=== PATIENT | female | born 1995 | race American Indian/Alaskan Native ===

== ENCOUNTER 2018-05-12 21:08 | Emergency (ER) | payer OTHER ==
[2018-05-12] MEDS ORDERED: Sodium Chloride 0.9% 1,000 ML IV ONE (21:51)
--- NOTE | 2018-05-12 22:02 | ED PDOC ---
HPI: Abdomen Time Seen by Provider: 05/12/18 21:39 Chief Complaint (Nursing): Abdominal Pain Chief Complaint (Provider): Abdominal Pain History Per: Patient History/Exam Limitations: no limitations Onset/Duration Of Symptoms: Days (x2) Current Symptoms Are (Timing): Still Present Pain Scale Rating Of: 8 Location Of Pain/Discomfort: LLQ Quality Of Discomfort: Cramping Additional Complaint(s): 22 year old female presents to the ED for evaluation of LLQ pain described as 8/10 cramping for the past two days. She denies taking any medications prior to arrival, and suspects that she might be , but did not take a test at home. Denies fever, nausea, vomiting, diarrhea, vaginal bleeding / discharge, urinary symptoms, chest pain, cough, shortness of breath, and other complaints. LNMP: 03/23/2018 PMD and OBGYN: Leti Hill Past Medical History Reviewed: Historical Data, Nursing Documentation, Vital Signs Vital Signs: Last Vital Signs Temp 98.3 F 05/12/18 21:12 Pulse 95 H 05/12/18 21:12 Resp 16 05/12/18 21:12 BP 113/78 05/12/18 21:12 Pulse Ox 99 05/12/18 21:12 - Medical History PMH: No Chronic Diseases - Surgical History Surgical History: (x1) - Family History Family History: States: Unknown Family Hx - Home Medications Home Medications: Ambulatory Orders Medication Instructions Recorded Nitrofurantoin Macrocrystals 1 cap PO BID #14 cap 12/23/14 [Macrobid] Acetaminophen [Acetaminophen 8 650 mg PO Q8 PRN #21 tablet.er 05/13/18 Hour] 21/Iron Fu/Folic Acid 1 each PO DAILY #60 tablet 05/13/18 [ Complete Caplet] - Allergies Allergies/Adverse Reactions: Allergies Allergy/AdvReac Type Severity Reaction Status Date / Time No Known Allergies Allergy Verified 12/23/14 11:25 Review of Systems ROS Statement: Except As Marked, All Systems Reviewed And Found Negative Constitutional: Negative for: Fever Cardiovascular: Negative for: Chest Pain Respiratory: Negative for: Cough, Shortness of Breath Gastrointestinal: Positive for: Abdominal Pain (LLQ, cramping, 8/10). Negative for: Nausea, Vomiting, Diarrhea Genitourinary Female: Negative for: Dysuria, Frequency, Incontinence, Vaginal Discharge, Vaginal Bleeding Physical Exam - Reviewed Nursing Documentation Reviewed: Yes Vital Signs Reviewed: Yes - Physical Exam Comments: GENERAL APPEARANCE: Patient is awake, alert, oriented x 3, in no acute distress, resting comfortably. SKIN: Warm, dry; (-) cyanosis. EYES: (-) conjunctival pallor, (-) scleral icterus. ENMT: Mucous membranes moist. NECK: Supple, FROM CHEST AND RESPIRATORY: (-) rales, (-) rhonchi, (-) wheezes; breath sounds equal bilaterally. Respirations even and nonlabored. HEART AND CARDIOVASCULAR: (-) irregularity ABDOMEN AND GI: Soft (-) distention. Bowel sounds active x4; (+) LLQ and suprapubic tenderness (-) guarding, (-) rebound, (-) palpable masses, (-) CVA tenderness. EXTREMITIES: (-) deformity, (-) edema, (+) distal pulses. NEURO AND PSYCH: Mental status as above; (-) focal findings. Gait: steady. Speech: clear. (-) facial asymmetry (-) aphasia - Laboratory Results Result Diagrams: 05/12/18 22:55 05/12/18 22:55 Urine POC: Positive Urine dip results: Negative for: Leukocyte Esterase, Blood, Nitrate, Ketones, Glucose, Bilirubin, Protein - ECG O2 Sat by Pulse Oximetry: 99 (RA) Pulse Ox Interpretation: Normal Medical Decision Making Medical Decision Making: Initial Impression: abdominal pain in first trimester, positive test Time: 2149 Initial Plan: --Beta-HCG --CMP --U-preg positive upon arrival to ED --U-dip --CBC with differential --Normal saline IV --Tylenol 650mg PO Patient reports this is her second , as she has one living child at home who was born full term via with no complications. 2320 Udip reviewed. CBC and CMP grossly unremarkable. 0005 Beta quant: 61593.00 OB T/V U/S ordered to confirm IUP 0025 Patient in U/S. 0315 US Findings: Uterus measures 9.2x2.8x7.7 cm. Endometrium is normal in thickness measuring 8.2 mm. Early intrauterine gestational sac is noted. It corresponds to an estimated gestation age measuring 5 weeks and 5 days. Normal cervix measuring 2.9 cm in length. Nonvisualization of the right ovary secondary to gaseous bowel distention. Unremarkable left ovary measuring 2.9x1.9x2 cm. Impression: Early intrauterine gestational sac. Patient requesting information on elective . Patient advised to follow up with OBGYN. On re-evaluation, patient reports improvement of symptoms. On exam, patient remains AAOx3, in no acute distress. Lungs clear to auscultation, cardiac RRR, abdomen soft, non-tender, repeat neuro exam shows no focal findings. Vitals stable. Lab/Diagnostic results d/w the patient in great detail. Diagnosis of positive test, abdominal pain in first trimester d/w the patient. Based on history, exam and diagnostic results, plan will be for outpatient follow up with OBGYN. Patient instructed to follow-up with pmd / referral provided / the clinic in 1- 2 days without fail. Advised to take medication as prescribed. Return to the emergency room at any time for any new or worsening symptoms. Patient states she fully agrees with and understands discharge instructions. States that she agrees with the plan and disposition. Verbalized and repeated discharge instructions and plan. I have given the patient opportunity to ask any additional questions. Scribe Attestation: Documented by Shawna Curry, acting as a scribe for Karolina Bradley PA-C. Provider Scribe Attestation: All medical record entries made by the Scribe were at my direction and personally dictated by me. I have reviewed the chart and agree that the record accurately reflects my personal performance of the history, physical exam, medical decision making, and the department course for this patient. I have also personally directed, reviewed, and agree with the discharge instructions and disposition. Disposition - Clinical Impression Clinical Impression: Abdominal pain during , Positive test - Patient ED Disposition Is Patient to be Admitted: No Counseled Patient/Family Regarding: Studies Performed, Diagnosis, Need For Followup, Rx Given - Disposition Referrals: Leti Hill MD [Family Provider] - Disposition: Routine/Home Disposition Time: 03:10 Condition: STABLE Additional Instructions: The emergency medical care you received today was directed at your acute symptoms. If you were prescribed any medication, please fill it and take as d irected. It may take several days for your symptoms to resolve. Return to the Emergency Department if your symptoms worsen, do not improve, or if you have any other problems. Please contact your doctor in 2 days for re-evaluation and follow up / or call one of the physicians/clinics you have been referred to that are listed on the Patient Visit Information form that is included in your discharge packet. Bring any paperwork you were given at discharge with you along with any medications you are taking to your follow up visit. Our treatment cannot replace ongoing medical care by a primary care provider (PCP) outside of the emergency department. Prescriptions: Acetaminophen [Acetaminophen 8 Hour] 650 mg PO Q8 PRN #21 tablet.er PRN Reason: Pain, Moderate (4-7) 21/Iron Fu/Folic Acid [ Complete Caplet] 1 each PO DAILY #60 tablet Instructions: Tests, Symptoms, Care, - The First Month, - The Second Month, - The Third Month, - The Fourth Month, Stomach Pain in Early Forms: [facility] (Georgian) Print Language: FRISIAN - POA Present On Arrival: None Results - Lab Results Lab Results: 05/12/18 05/12/18 22:55 22:55 WBC 9.1 RBC 4.17 Hgb 11.7 L Hct 35.4 MCV 84.8 MCH 28.0 MCHC 33.0 RDW 15.6 H Plt Count 356 MPV 8.6 Neut % (Auto) 73.8 Lymph % (Auto) 15.5 L Pitt % (Auto) 8.2 Eos % (Auto) 1.9 Baso % (Auto) 0.6 Neut # (Auto) 6.7 Lymph # (Auto) 1.4 Pitt # (Auto) 0.7 Eos # (Auto) 0.2 Baso # (Auto) 0.1 Sodium 138 Potassium 4.3 Chloride 107 Carbon Dioxide 23 Anion Gap 12 BUN 8 Creatinine 0.5 L Est GFR ( Amer) > 60 Est GFR (Non-Af Amer) > 60 Random Glucose 72 Calcium 9.7 Total Bilirubin 0.3 AST 29 ALT 18 Alkaline Phosphatase 67 Total Protein 7.9 Albumin 4.3 Globulin 3.6 Albumin/Globulin Ratio 1.2 Beta HCG, Quant 13325.00
[2018-05-12 23:02] LABS: BASO # 0.1 K/uL (0.0-0.2); BASO % 0.6 % (0.0-2.0); EOS # 0.2 K/uL (0.0-0.7); EOS % 1.9 % (0.0-4.0); HEMOGLOBIN 11.7 g/dL (12.0-16.0); LYMPH # 1.4 K/uL (1.0-4.3); LYMPH % 15.5 % (20.0-40.0); MEAN CELL VOLUME 84.8 fl (81.0-99.0); MEAN PLATELET VOLUME 8.6 fl (7.2-11.7); MONO # 0.7 K/uL (0.0-0.8); MONO % 8.2 % (0.0-10.0); NEUT # 6.7 K/uL (1.8-7.0); NEUT % 73.8 % (50.0-75.0); RBC 4.17 Mil/uL (3.80-5.20); RED CELL DISTRIBUTION WIDTH 15.6 % (11.5-14.5); WHITE BLOOD COUNT 9.1 K/uL (4.8-10.8)
[2018-05-12 23:09] LABS: ALB/GLOB RATIO 1.2 (1.0-2.1); ALBUMIN 4.3 g/dL (3.5-5.0); ALT/SGPT 18 U/L (9-52); AST/SGOT 29 U/L (14-36); BLOOD UREA NITROGEN 8 mg/dl (7-17); CALCIUM 9.7 mg/dL (8.4-10.2); GFR NON-AFRICAN AMERICAN > 60
[2018-05-13 03:52] VITALS: BP 108/72; PULSE 77; RESP 18; TEMP 98.5
[2018-05-13 05:45] VITALS: O2SAT 99
--- NOTE | 2018-05-13 12:30 | US ---
Date of service: 05/13/2018 PROCEDURE: Pelvic ultrasound HISTORY: confirm IUP, positive preg test, beta >20k COMPARISON: None TECHNIQUE: Standard protocol for this study/examination. FINDINGS: LMP: 04/01/2018 Prior examinations from the current : None TECHNIQUE: Real-time 2D imaging, duplex and color Doppler. FINDINGS: No visible pole Gestational age 5 weeks 5 days based on gestational sac measurement 1.49 cm Gestational age derived from LMP: 6 weeks THEODORE based on LMP: 01/06/2019 THE[place]ORE based on biometry: 01/08/2019 Gestational concordance noted Yolk sac not identified Cervix: No Cervical abnormalities: Negative examination for cervical dilatation or effacement. Closed cervix measuring 3.94 cm Subchorionic hemorrhage: None UTERUS: 4.8 x 7.7 x 9.2 cm. ADNEXA: Right: Not visible. Left: 1.9 x 2 x 2.9 cm. Normal Doppler arterial waveform documented Fluid in the cul-de-sac: None IMPRESSION: Presumed early intrauterine gestation based on well-formed gestational sac. No cardiac pole identified. No visible yolk sac. Concordant findings (preliminary report) provided by [facility].
== END 2018-05-13 03:51 | disposition home or self-care (01) ==
LOC: H.ER 21:08
DX: O26.899 Other specified pregnancy related conditions, unspecified trimester (principal)
CPT/HCPCS: 76817; 80053; 81025; 84702; 85025; 96360; 99284; J7040